=== PATIENT | female | born 1955 | race Caucasian/White ===

== ENCOUNTER 2017-05-02 07:52 | Day surgery (SDC) | payer MEDICARE ==
[~2017-05-02 07:52] MED LIST: Buffered Lidocaine 0.9% SYRIN* 5 ML/SYR SYRINGE INTRADERM ONE
[2017-05-02] MEDS ORDERED: Midazolam* 1 MG/ML 2 ML VIAL (2 MG) ONE (09:09)
[2017-05-02] MEDS ORDERED: Propofol* 10 MG/ML 20 ML BTL IV PUSH ONE (09:10)
[2017-05-02] MEDS ORDERED: Lidocaine 1% INJ* 10 MG/ML 30 ML SDV ONE (09:14)
[2017-05-02 10:16] VITALS: BP 107/60
--- NOTE | 2017-05-02 10:52 | OP ---
DATE OF OPERATION: 05/02/2017 - [facility] DATE OF : 1955. SURGEON: Dr. Jeimy Paige. SALVAGE MACHINE OPERATOR: SHENA Bruno. ANESTHESIOLOGIST: Stew Garner MD ANESTHESIA: Local MAC. PRE-OP DIAGNOSIS: Right hand mass and right carpal tunnel syndrome. POST-OP DIAGNOSIS: Right hand mass and right carpal tunnel syndrome. OPERATIVE PROCEDURE: Remove right hand mass and right carpal tunnel release. ESTIMATED BLOOD LOSS: Zero. TOURNIQUET TIME: 15 minutes. INDICATION FOR PROCEDURE: Lin is a 61-year-old female who has a painful mass in the palm of her right hand consistent with Dupuytren's nodule, but there is no contracture. She also has numbness and tingling in the median nerve distribution of her right hand consistent with carpal tunnel syndrome. She presents for carpal tunnel release and removal of the hand mass. DESCRIPTION OF PROCEDURE: The patient was brought to the operating room and was given a sedation anesthetic and a local infiltration of 10 cc of 1% plain Lidocaine in the palm of her right hand. The skin of her right hand and forearm was prepped and draped in the usual sterile fashion. The hand and forearm were exsanguinated and tourniquet elevated to 250 mmHg. A longitudinal incision was made in the palm in line with the ring finger. We dissected through the subcutaneous tissue sharply with the knife. The transverse carpal ligament was divided sharply with a knife and then more proximally the scissors. The nerve was dissected free from the surrounding tissue and there is an area of moderate compression in the mid portion of the ligament. The wound was irrigated and the skin edge is reapproximated with 4-0 nylon suture. Next, a chevron incision was made centered over the palpable mass. The skin was dissected away from the mass and then carefully dissected off of the flexor tendon sheath and away from the neurovascular bundles. The neurovascular bundles were retracted by the assistant professor of criminal justice, Suma Stafford. The Dupuytren' s nodule was removed in its entirety and sent for pathology. The wound was irrigated and skin edge was reapproximated with 4-0 nylon suture. The wound was dressed in Xeroform, 4x4, Webril, and an Vicente wrap. The patient tolerated the procedure well and was brought to the recovery room in good condition. [id number]/[facility] #: [id number] [facility]
== END 2017-05-02 10:22 | disposition home or self-care (01) ==
LOC: OREAST 07:52
PROVIDERS: ATTEND Orthopaedic Surgery
PROC: 01N50ZZ Release Median Nerve, Open Approach (ICD-10-PCS; principal; 2017-05-02 09:15)
DX: M72.0 Palmar fascial fibromatosis [Dupuytren] (principal); G56.01 Carpal tunnel syndrome, right upper limb; E11.9 Type 2 diabetes mellitus without complications; F17.210 Nicotine dependence, cigarettes, uncomplicated; G47.33 Obstructive sleep apnea (adult) (pediatric); J44.9 Chronic obstructive pulmonary disease, unspecified; I27.81 Cor pulmonale (chronic); Z79.84 Long term (current) use of oral hypoglycemic drugs
CPT/HCPCS: 88304; J2001; J2250; J2704